=== PATIENT | male | born 1945 | race Caucasian/White ===

== ENCOUNTER → 2019-01-27 12:35 | Outpatient (CLI) | payer MEDICARE, OTHER | END | disposition home or self-care (01) | LOC: D.LAB 02:30 → D.RAD 12:35 → D.RT 15:00 | PROVIDERS: ATTEND Internal Medicine Pulmonary Disease | DX: J45.909 Unspecified asthma, uncomplicated (principal); R13.10 Dysphagia, unspecified ==

== ENCOUNTER → 2019-02-04 10:45 | Outpatient (CLI) | payer MEDICARE, OTHER ==
[2019-02-04 15:51] LABS: BASOPHILS 0.2 % (0-2); EOSINOPHILS 2.7 % (0-7); HEMATOCRIT 49.3 % (42.0-54.0); HEMOGLOBIN 17.5 g/dL (13.5-17.5); IMMATURE GRANULOCYTES 0.3 % (0-5); LYMPHOCYTES 25.8 % (15-50); MCH 32.8 pg (26.0-34.0); MCHC 35.5 g/dL (31.0-37.0); MCV 92.5 fL (80.0-100.0); MEAN PLATELET VOLUME 9.3 fL (7.4-10.4); MONOCYTES 6.9 % (2-11); NEUTROPHILS 64.1 % (40-80); PLATELET COUNT 140 10x3/uL (130-400); RBC 5.33 10x6/uL (4.20-6.10); RDW 13.5 % (11.5-14.5); WBC 5.9 10x3/uL (4.8-10.8)
[2019-02-05 09:10] LABS: IMMUNOGLOBULIN A 134 mg/dL (61-437); IMMUNOGLOBULIN G 970 mg/dL (700-1600); IMMUNOGLOBULIN M 87 mg/dL (15-143)
[2019-02-06 06:08] LABS: IGG SUBCLASS 1 590 mg/dL (248-810); IGG SUBCLASS 2 251 mg/dL (130-555); IGG SUBCLASS 3 15 mg/dL (15-102); IGG SUBCLASS 4 21 mg/dL (2-96)
[2019-02-08 09:08] LABS: IMMUNOGLOBULIN E 232 IU/mL (6-495)
== END | disposition home or self-care (01) ==
LOC: D.LABREF 10:45
PROVIDERS: ATTEND Internal Medicine Pulmonary Disease
DX: J45.909 Unspecified asthma, uncomplicated (principal)

== ENCOUNTER 2019-03-30 06:48 | Outpatient (CLI) | payer MEDICARE, OTHER ==
[~2019-03-30] VITALS: Ht 185.4 cm; Wt 101.4 kg
[2019-03-30 07:24] LABS: BASOPHILS 0.2 % (0-2); EOSINOPHILS 2.9 % (0-7); HEMATOCRIT 48.9 % (42.0-54.0); HEMOGLOBIN 17.3 g/dL (13.5-17.5); IMMATURE GRANULOCYTES 0.3 % (0-5); LYMPHOCYTES 32.2 % (15-50); MCH 32.8 pg (26.0-34.0); MCHC 35.4 g/dL (31.0-37.0); MCV 92.8 fL (80.0-100.0); MONOCYTES 6.7 % (2-11); NEUTROPHILS 57.7 % (40-80); PLATELET COUNT 124 10x3/uL (130-400); RBC 5.27 10x6/uL (4.20-6.10); RDW 13.7 % (11.5-14.5)
[2019-03-30 07:29] LABS: APTT 29.9 SECONDS (22.8-39.4); INR 1.04 (0.85-1.17); PROTIME 13.1 SECONDS (11.6-15.0)
[2019-03-30 08:04] VITALS: Ht 185.4 cm; Wt 101.4 kg
[2019-03-30] MEDS ORDERED: LEVO-T25 MCG PO (08:11)
[2019-03-30] MEDS ORDERED: TESTOSTERONE CYPIONA (08:12)
[2019-03-30] MEDS ORDERED: NORVASC5 MG PO (08:13)
[2019-03-30] MEDS ORDERED: NEURONTIN 300300 MG PO (08:14)
[2019-03-30] MEDS ORDERED: TERAZOSIN HCL2 MG (08:14)
[2019-03-30] MEDS ORDERED: PROSCAR5 MG PO (08:15)
[2019-03-30] MEDS ORDERED: ROBAXIN500 MG PO (08:17)
[2019-03-30] MEDS ORDERED: VITAMIN B-121000 MCG PO (08:18)
[2019-03-30] MEDS ORDERED: PROTONIX40 MG PO (08:18)
[2019-03-30] MEDS ORDERED: VENTOLIN (08:19)
[2019-03-30] MEDS ORDERED: ADVAIR 250/501 DISK INH (08:19)
--- NOTE | 2019-03-30 10:52 | NUR ---
1000 PT IN BED NPO UNTIL 1100 NO COUGHING NOTED. VS STABLE
[2019-03-31 13:10] LABS: FUNGUS STAIN Final report (())
[2019-03-31 15:10] LABS: ACID FAST SMEAR Negative (()); AFB SPECIMEN PROCESSING Concentration (())
[2019-04-05 15:09] LABS: FUNGUS CULTURE RESULT 1 Candida albicans (()); FUNGUS MYCOLOGY CULTURE Preliminary report (())
== END 2019-03-30 11:45 | disposition home or self-care (01) ==
LOC: D.OPS 06:48
PROVIDERS: ATTEND Internal Medicine Pulmonary Disease
DX: R05 Cough (principal); Z01.812 Encounter for preprocedural laboratory examination